=== PATIENT | male | born 1965 | race African-American/Black ===

== ENCOUNTER 2022-10-26 05:25 | Day surgery (SDC) | payer OTHER ==
[2022-10-24 14:59] VITALS: BMI 27.3
[2022-10-26 12:48] VITALS: BP 130/83; PULSE 48; RESP 17; TEMP 97.1
== END 2022-10-26 12:40 | disposition home or self-care (01) ==
LOC: JASU-ENDO 05:25
PROVIDERS: ATTEND Internal Medicine Gastroenterology
PROC: 0D5L8ZZ Destruction of Transverse Colon, Via Natural or Artificial Opening Endoscopic (ICD-10-PCS; principal; 2022-10-26 11:00)
DX: Z12.11 Encounter for screening for malignant neoplasm of colon (principal); D12.3 Benign neoplasm of transverse colon
CPT/HCPCS: 88305-TC